=== PATIENT | female | born 1985 | race Caucasian/White ===

== ENCOUNTER → 2021-10-18 13:26 | Outpatient (BNVA) | payer MEDICAID, SELFPAY | PROVIDERS: Family Provider Family Medicine; PCP Family Medicine; Visit Provider Family Medicine | DX: Z00.00 Encounter for general adult medical examination without abnormal findings (principal); Z13.220 Encounter for screening for lipoid disorders | CPT/HCPCS: 80053; 80061; 85025 ==

== ENCOUNTER 2021-12-05 20:00 | Outpatient (CLI) | payer MEDICAID, SELFPAY | END 2021-12-05 20:01 | disposition home or self-care (01) | LOC: SLEEP 12-06 07:49 | PROVIDERS: Family Provider Family Medicine; PCP Family Medicine; Visit Provider Specialist | DX: G47.19 Other hypersomnia (principal); R06.83 Snoring; R53.83 Other fatigue | CPT/HCPCS: 95810 ==

== ENCOUNTER 2022-01-11 08:42 | Outpatient (CLI) | payer MEDICAID, SELFPAY ==
--- NOTE | 2022-01-11 08:45 | MR_ITS ---
WS: [id number] MRI BRAIN WITH AND WITHOUT CONTRAST HISTORY: Neurologic changes concerning for MS COMPARISON: None available. TECHNIQUE: Multiplanar imaging performed through the brain with MultiHance 16 ml's IV. No acute infarcts are seen. [place]-white matter differentiation is well preserved. No signal abnormalit ies in the pericallosal distribution or in the subcortical white matter or temporal lobes. Sagittal F LAIR sequence through the upper cervical spine is also negative. No susceptibility artifacts or prior lacunar infarcts. Ventricles and extra-axial spaces are normal. Clivus and pituitary gland are normal. Visualized posterior fossa and brainstem are also normal. Postcontrast images are negative for masses or vascular malformations. Dural venous sinuses are normal. Paranasal sinuses: Well aerated with no significant disease. Mastoid air cells: Normal. Calvarium and scalp: Normal. MR/MR head wo/w con [id number] IMPRESSION: 1. Normal MRI brain with contrast. 2. No MRI evidence for demyelinating disease.
[2022-01-11] MEDS: gadobenate dimeglumine 20 mL vial IV (09:34)
== END 2022-01-11 08:43 | disposition home or self-care (01) ==
LOC: RAD 08:44
PROVIDERS: Family Provider Family Medicine; PCP Family Medicine; Visit Provider Family Medicine
DX: R20.0 Anesthesia of skin (principal); R20.2 Paresthesia of skin; H53.9 Unspecified visual disturbance
CPT/HCPCS: 70553

== ENCOUNTER → 2023-02-24 15:22 | Outpatient (BNVA) | payer MEDICAID, SELFPAY | PROVIDERS: Family Provider Family Medicine; PCP Family Medicine; Visit Provider Obstetrics & Gynecology | DX: N92.0 Excessive and frequent menstruation with regular cycle (principal) | CPT/HCPCS: 85025 ==

== ENCOUNTER → 2023-03-04 10:25 | Outpatient (BNVA) | payer MEDICAID, SELFPAY | PROVIDERS: Family Provider Family Medicine; PCP Family Medicine; Visit Provider Obstetrics & Gynecology | DX: N92.0 Excessive and frequent menstruation with regular cycle (principal) | CPT/HCPCS: 76830 ==

== ENCOUNTER 2023-04-10 06:23 | Day surgery (SDC) | payer MEDICAID, SELFPAY ==
[2023-04-10] VITALS (10 sets, daily range): BP systolic 108–122; BP diastolic 70–84; PULSE 67–88; RESP 12–18; TEMP 36.1–36.3; O2SAT 97–100; BMI 25.0
--- NOTE | 2023-04-10 02:06 | W.PM.OPSFHP ---
Same Day Surgery H&P Indication for Procedure/HPI DATE OF PROCEDURE: April 10, 2023 CHIEF COMPLAINT/INDICATIONFOR SURGICAL PROCEDURE: abnormal uterine bleeding PREOP DIAGNOSIS: abnormal uterine bleeding PLANNED PROCEDURE: Operation Date: 04/10/23 08:00 Proposed Procedures p Hysteroscopy Hysteroscopy w/ Endometrial Sampling(Not Applicable) - Montana Chavez MD s possible endometrial polypectomy 16060,(Not Applicable) - Montana Chavez MD 37 y.o. A1 Periods heavy and very painful x three months Bleeding 105 mls over 2 days, as measured by menstrual cup With passing large clots Accompanied by severe cramps Now scheduled for hysteroscopy, endometrial sampling, possible endometrial polypectomy Medications/Allergies* Home Medications Medication Instructions Recorded Confirmed Type No Known Home Medications 02/24/23 04/09/23 History Allergies/Adverse Reactions Allergy/AdvReac Type Severity Reaction Status Date / Time No Known Allergies Allergy Verified 04/09/23 09:12 Pertinent History/Comorbid Conditions* Medical History (Updated 03/05/23 @ 09:29 by Montana Chavez MD) Genital herpes Surgical History (Updated 12/12/21 @ 16:29 by Andrew Ling MD) History of breast augmentation History of umbilical hernia repair History of dilation and curettage Previous section Family History (Updated 02/24/23 @ 11:54 by Wandy Pelayo) Denies family history of Colon cancer Ovarian cancer Diabetes Heart disease Hyperlipidemia Breast cancer Hypertension Uterine cancer Stroke Social History Smoking and tobacco/nicotine status: former use of tobacco/nicotine Quit status (tobacco/nicotine): has quit using Year quit tobacco: October 2021 Pertinent Exam Findings alert, oriented x 3, clear to auscultation bilaterally and regular rate & rhythm Recommendations Surgery/Procedure today Coding Level of Care Code Acute Code for Chg Fwd Time Spent (min) 20
[2023-04-10 07:04] LABS: OR HCG Qualitative Urine Negative (Negative)
[2023-04-10] MEDS: sodium chloride 0.9% 1,000 ML 30 ML IV (07:05)
--- NOTE | 2023-04-10 07:59 | ANES.PREANE2 ---
Pre-Anesthetic Assessment Height/Weight: Height 1.7 m Weight 72.575 kg Temp Pulse Resp BP Pulse Ox O2 Del Method 97.0 F L 75 16 118/70 98 Room Air 04/10/23 06:48 04/10/23 06:48 04/10/23 06:48 04/10/23 06:48 04/10/23 06:48 04/10/23 06:48 Preop Diagnosis: abnormal uterine bleeding Operation Date: 04/10/23 08:00 Proposed Procedures p Hysteroscopy Hysteroscopy w/ Endometrial Sampling(Not Applicable) - Montana Chavez MD s possible endometrial polypectomy 25016,(Not Applicable) - Montana Chavez MD Familial anesthetic complications: None Was Beta Paul taken within 24 hours: N/A Was Clonidine taken within 24 hours: N/A Last intake: Intake Last Liquid Date 04/09/23 Last Liquid Time 21:00 Last Solid Date 04/09/23 Last Solid Time 20:00 Social No alcohol and No tobacco (Former smoker) 20 pack years Exam alert, oriented x 3, clear to auscultation bilaterally and regular rate & rhythm Airway Submandibular: within normal limits Cervical ROM: within normal limits Mallampati: Class II Dentition: full History/ROS No significant history except as noted Pulmonary None reported CV/HEM None reported None reported Hepatic None reported GI None reported Metabolic None reported Musc/skel None reported Neuropsych None reported Anesthetic Plan ASA status: 1 Anesthesia: General Risk of > 500 ml blood loss (7ml/kg in children): No Medications/Allergies Home Medications Medication Instructions Recorded Confirmed Last Taken Type No Known Home Medications 02/24/23 04/10/23 Unknown History Allergies Allergy/AdvReac Type Severity Reaction Status Date / Time No Known Allergies Allergy Verified 04/09/23 09:12 Current Medications Generic Name Dose Route Start Last Admin Trade Name Freq PRN Reason Stop Dose Admin Sodium Chloride 1,000 mls @ 30 mls/hr 04/10/23 06:45 04/10/23 07:05 Sodium Chloride 0.9% IV 04/11/23 06:44 30 mls/hr .Q24H BECKY Administration PFSH Anesthesia Medical History (Updated 03/05/23 @ 09:29 by Montana Chavez MD) Genital herpes Surgical History (Updated 12/12/21 @ 16:29 by Andrew Ling MD) History of breast augmentation History of umbilical hernia repair History of dilation and curettage Previous section Family History (Updated 02/24/23 @ 11:54 by Wandy Pelayo) Denies family history of Colon cancer Ovarian cancer Diabetes Heart disease Hyperlipidemia Breast cancer Hypertension Uterine cancer Stroke Social History (Updated 12/12/21 @ 16:34 by Andrew Ling MD) Smoking and tobacco/nicotine status: former use of tobacco/nicotine Quit status (tobacco/nicotine): has quit using Year quit tobacco: October 2021 Female Reproductive History Date of last menstrual period: 04/08/23 Data Anesthesia Cardiac Studies: No Data to Display
--- NOTE | 2023-04-10 08:05 | W.PM.OPSUD ---
Surgery/Procedure H&P Update DATE OF PROCEDURE: April 10, 2023 DATE H&P PERFORMED: 04/10/23 H&P UPDATE INFORMATION: I have reviewed H&P completed within last 30 days, I have examined patient prior to procedure and No changes to prior documentation CHANGES TO PREVIOUS DOCUMENTATION: none PREOP DIAGNOSIS: abnormal uterine bleeding PRIMARY INDICATION FOR PROCEDURE: abnormal uterine bleeding PLANNED PROCEDURE: Operation Date: 04/10/23 08:00 Proposed Procedures p Hysteroscopy Hysteroscopy w/ Endometrial Sampling(Not Applicable) - Montana Chavez MD s possible endometrial polypectomy 78037,(Not Applicable) - Montana Chavez MD
--- NOTE | 2023-04-10 10:05 | ANE.PACU2 ---
Inpatient post-anesthesia follow up: Airway intact: Yes Vital signs: Temperature 97.0 F Pulse Rate 75 Respiratory Rate 18 Blood Pressure 122/79 Pulse Oximetry 100 Oxygen Delivery Me thod Room Air Oxygen Flow Rate 6 Fraction of Inspir ed Oxygen Hydration adequate: Yes Nausea and vomiting: No Pain level: 1 Mental status: Baseline
--- NOTE | 2023-04-10 18:39 | P.OP_ITS ---
Operative Report Date of procedure: April 10, 2023 Pre-op diagnosis: abnormal uterine bleeding Post-op diagnosis: same Procedure done: hysteroscopy Endometrial sampling with Myosure Endometrial polypectomy with Myosure Curettage of uterus Implants: none Specimens removed/disposition: endometrial tissue Surgeon: Montana Chavez MD Anesthesia: MAC Estimated blood loss (mL): 0 Complications: none Findings: one 2 cm polypoid endometrial mass Otherwise normal endometrial cavity Condition: stable Disposition: PACU Brief History: 37 y.o. A1 Periods heavy and very painful x three months Bleeding 105 mls over 2 days, as measured by menstrual cup With passing large clots Accompanied by severe cramps scheduled for hysteroscopy, endometrial sampling, possible endometrial polypectomy Procedure: Informed consent signed. Patient was taken to the operating room. Anesthesia was induced. Patient was placed in dorsolithotomy position, prepped and draped for hysteroscopy. A bivalve speculum was placed in the vagina. The anterior lip of the cervix was grasped with a sharp-toothed tenaculum. The cervix was serially dilated with Hegar dilators. . A hysteroscope was placed into the endometrial cavity. The endometrial cavity was seen have a single 2 cm polypoid mass. There were no other lesions. A Myosure was then inserted and the polypoid mass was removed. Endometrial sampling was also done with the Myosure device. The myosure was then removed. Sharp curettage of the uterus was done with a curette. Small amount of endometrial tissue was obtained. All endometrial samples were sent to pathology. The sharp-toothed tenaculum was removed. There was no bleeding from the endometrial cavity or cervix. The patient was then placed supine and awaken ed and taken to the PACU. Postop condition: stable EBL: none Sponge and instruments counts were normal x 2 Complications: none
== END 2023-04-10 10:08 | disposition home or self-care (01) ==
PROVIDERS: Anesthesiology; Family Provider Family Medicine; PCP Family Medicine; Visit Provider Obstetrics & Gynecology
PROC: 0UDB8ZZ Extraction of Endometrium, Via Natural or Artificial Opening Endoscopic (ICD-10-PCS; CPT 58558; 2023-04-10 08:00)
DX: N93.9 Abnormal uterine and vaginal bleeding, unspecified (principal); Z87.891 Personal history of nicotine dependence
CPT/HCPCS: 58558; 81025; 84703; 88305; J1100; J2250; J2371; J2405; J2704; J3010; J7030

== ENCOUNTER → 2023-06-24 10:52 | Outpatient (BNVA) | payer MEDICAID, SELFPAY | PROVIDERS: Family Provider Family Medicine; PCP Family Medicine; Visit Provider Family Medicine | DX: R53.81 Other malaise (principal); R53.83 Other fatigue; Z51.81 Encounter for therapeutic drug level monitoring; E55.9 Vitamin D deficiency, unspecified | CPT/HCPCS: 80053; 82306; 85025; 86618; 86666; 86757 ==

== ENCOUNTER 2023-07-01 14:37 | Outpatient (CLI) | payer MEDICAID, SELFPAY ==
--- NOTE | 2023-07-01 15:00 | USCV_ITS ---
Jihan Arriaga Age: 38 Gender: F : 1985 Exam Date: 07/01/2023 14:47 Ordering Phys: Andrew Ling MD Technologist: DYLLAN Exam Location: [facility] [place] Indication: CHEST PAIN BP: 120 / 80 HR: 0 Rhythm: Sinus Technical Quality: Technically difficult study MEASUREMENTS (Male / Female) Normal Values 2D ECHO LV Diastolic Diameter PLAX 4.4 cm 4.2 - 5.9 / 3.9 - 5.3 cm IVS Diastolic Thickness 0.8 cm 0.6 - 1.0 / 0.6 - 0.9 cm IVS Systolic Thickness 1.8 cm LVPW Diastolic Thickness 1.2 cm 0.6 - 1.0 / 0.6 - 0.9 cm LVPW Systolic Thickness 1.5 cm LVOT Diameter 1.7 cm LV Ejection Fraction 2D Teich 72.6 % LV Ejection Fraction MOD 2C 69.4 % Aorta at Sinotubular Diameter 2.1 cm IVC Diameter 1.1 cm M-MODE LA Ao Ratio MM 0.8 AV Cusp Separation MM 1.8 cm DOPPLER AV Peak Velocity 119.0 cm/s LVOT Peak Velocity 91.0 cm/s AV Area Cont Eq vti 1.6 cm squared AV Area Cont Eq pk 1.7 cm squared MV Area PHT 2.9 cm squared Mitral E to A Ratio 1.2 TR Peak Velocity 116.0 cm/s TR Peak Gradient 5.4 mmHg PV Peak Velocity 87.0 cm/s FINDINGS Left Ventricle Normal left ventricular size and systolic function, EF 68% . No regional wall motion abnormalities. Right Ventricle The right ventricle is normal in size and function. Right Atrium The right atrium is normal in size. Left Atrium The left atrium is normal in size. Mitral Valve No gross abnormalities noted Aortic Valve No gross abnormalities noted Tricuspid Valve No gross abnormalities noted Pulmonic Valve No gross abnormalities noted Pericardium Normal pericardium without effusion. Aorta Normal ascending aorta dimension. IVC The inferior vena cava appears normal. CONCLUSIONS Normal left ventricular size and systolic function, EF 68% . No regional wall motion abnormalities. Normal cardiac chamber sizes. No significant valvular abnormalities. No intracardiac shunts by color-flow Doppler examination. There is no pericardial effusion. No similar previous studies are available for comparison Dr Nikki De La Garza MD FACC (Electronically Signed) Final Date: 03 July 2023 17:14 S
== END 2023-07-01 14:38 | disposition home or self-care (01) ==
LOC: RAD 14:38
PROVIDERS: PCP Family Medicine; Visit Provider Family Medicine
DX: R07.9 Chest pain, unspecified (principal)
CPT/HCPCS: 93306